=== PATIENT | male | born 1960 | race Caucasian/White ===

== ENCOUNTER 2020-05-08 16:45 | Emergency (ER) | payer OTHER, SELFPAY ==
[2020-05-08 17:02] VITALS: BP 138/83; PULSE 116; RESP 20; TEMP 37.8; O2SAT 98
== END 2020-05-08 17:45 | disposition left against medical advice (07) ==
LOC: ANHED 17:49
PROVIDERS: PCP Family Medicine
DX: R06.02 Shortness of breath (principal)
CPT/HCPCS: 99199

== ENCOUNTER → 2020-10-31 07:35 | Outpatient (CLI) | payer OTHER, SELFPAY ==
[2020-11-01 00:17] LABS: SARS-CoV-2 RNA PCR Negative
== END ==
PROVIDERS: PCP Family Medicine; Visit Provider Nurse Practitioner Family
DX: R68.89 Other general symptoms and signs (principal); Z20.822 Contact with and (suspected) exposure to COVID-19
CPT/HCPCS: C9803; U0003; U0005

== ENCOUNTER → 2020-11-02 09:20 | Outpatient (CLI) | payer OTHER, SELFPAY ==
--- NOTE | ~2020-11-02 | XR_ITS ---
XR chest 2V 11/02/2020 09:30 Indication: Cough Procedure: 2 view chest Comparison: 10/06/2011 Findings: There is right lower lobe airspace disease. Heart size normal. Left lung clear. No pleural effusion, edema or pneumothorax. Impression: 1: Right lower lobe airspace disease, atelectasis versus pneumonia. Reviewed, dictated and finalized at location B. [employer]IAISON OFFICER Impression: 1: Right lower lobe airspace disease, atelectasis versus pneumonia.
== END ==
PROVIDERS: PCP Family Medicine; Visit Provider Nurse Practitioner Family
DX: R05 Cough (principal); R91.8 Other nonspecific abnormal finding of lung field
CPT/HCPCS: 71046

== ENCOUNTER → 2020-11-25 08:09 | Outpatient (CLI) | payer OTHER, SELFPAY ==
--- NOTE | ~2020-11-25 | XR_ITS ---
EXAMINATION: XR chest 2V DATE: 11/25/2020 08:23 INDICATION: Pneumonia, unspecified organism. TECHNIQUE: Frontal and lateral views of the chest were obtained. COMPARISON: Chest 2 views 11/02/2020 FINDINGS: A calcified right lung nodule is consistent with old granulomatous disease. No pleural effu mignon or pneumothorax. The heart size is normal. IMPRESSION: 1. No acute cardiopulmonary disease. Reviewed, dictated and finalized at location A. K CUTTER
== END ==
PROVIDERS: PCP Family Medicine; Visit Provider Nurse Practitioner Family
DX: J18.9 Pneumonia, unspecified organism (principal)
CPT/HCPCS: 71046